=== PATIENT | female | born 1970 | race Caucasian/White ===

== ENCOUNTER 2016-12-23 18:50 | Inpatient (IN) | payer BC ==
[2016-07-31 14:19] VITALS: Ht 167.6 cm; Wt 63.5 kg
[~2016-12-23] VITALS: Ht 167.6 cm; Wt 63.5 kg
[~2016-12-23 18:50] MED LIST: ALPR1TAB2 PO; CARI250T9 PO; CITA20TA11 PO; GABA-531 PO; HYDR-3109 PO; HYDR-4100 PO; HYDR4TAB26 PO; LEVO500T20 PO; LIALDA PO; MEGE400O PO; MEGE40TA PO; METR500T PO; ONDA4TAB11 PO; ONDA4TAB5 PO; PANT20TA2 PO; PHEN16.227 PO; POTA20TA83 PO; PRED20TA PO; VANC250C11 PO
[2016-12-23] MEDS ORDERED: LORazepam 2 MG/ML VIAL IVP PRN (20:00)
[2016-12-23] MEDS ORDERED: ALBUTEROL SULFATE 0.083% 2.5 MG/3 ML VIAL.NEB INH PRN (20:00)
[2016-12-23] MEDS ORDERED: IPRATROPIUM BROM 0.5 MG/2.5 ML VIAL.NEB (ATROVENT) INH PRN (20:00)
[2016-12-23 21:15] VITALS: BP 115/53; PULSE 93; RESP 19; TEMP 97.3; O2SAT 94
[2016-12-23] MEDS ORDERED: CEFAZOLIN 1 GM IVPB PREMIX 100 ML IV ONE (21:59)
[2016-12-23] MEDS ORDERED: CLINDAMYCIN 600 mg/50mL D5W 100 ML IV ONE (22:00)
[2016-12-23] MEDS: GABAPENTIN 300 MG CAPSULE PO SCH (22:58)
[2016-12-23] MEDS: ALPRAZolam 0.25 MG TABLET PO SCH (22:58)
[2016-12-23] MEDS: LACTOBACILLUS RHAMNOSUS GG 1 CAP CAPSULE PO SCH (22:58)
[2016-12-23] MEDS: BELLADONNA ALKALOIDS/PHENOBARB 16.2 MG TABLET PO SCH (22:58)
[2016-12-23] MEDS: MEGESTROL ACETATE 400 MG/10 ML UDC PO SCH (22:58)
[2016-12-23] MEDS: HYDROmorphone 2 MG/ML VIAL IVP PRN (22:59)
[2016-12-23] MEDS: CEFAZOLIN 1 GM IVPB PREMIX 50 ML IV SCH (23:00)
[2016-12-23] MEDS: NORMAL SALINE 5 ML DISP.SYRIN IVF SCH (23:01)
[2016-12-23 23:28] LABS: BILIRUBIN,URINE 1+ (NEGATIVE); BLOOD, URINE NEGATIVE (NEGATIVE); CLARITY/URINE CLOUDY (CLEAR); COLOR,URINE YELLOW (YELLOW); GLUCOSE,URINE NEGATIVE (NEGATIVE); KETONES,URINE TRACE (NEGATIVE); LEUKOCYTE ESTERASE ,URINE NEGATIVE (NEGATIVE); NITRITE, URINE NEGATIVE (NEGATIVE); PROTEIN URINE TRACE (NEGATIVE); UROBILINOGEN,URINE 0.2 (0.2-1.0)
[2016-12-23] MEDS: IPRATROPIUM BROM 0.5 MG/2.5 ML VIAL.NEB (ATROVENT) INH SCH (23:39)
[2016-12-23] MEDS: ALBUTEROL SULFATE 0.083% 2.5 MG/3 ML VIAL.NEB INH SCH (23:39)
[2016-12-23 23:44] LABS: BASOPHILS % (AUTO) 0.7 % (0.0-2.0); EOSINOPHILS # (AUTO) 0.3 K/uL (0.0-0.4); HEMATOCRIT 39.7 % (36-48); HEMOGLOBIN 12.9 g/dL (12.0-16.0); LYMPHOCYTES # (AUTO) 1.8 K/uL (1.0-5.5); LYMPHOCYTES % (AUTO) 25.8 % (20.5-51.5); MEAN CORPUSCULAR HEMOGLOBIN 30 pg (27-31); MEAN CORPUSCULAR HGB CONC 33 % (32-36); MEAN CORPUSCULAR VOLUME 93 fL (79.0-98.0); MONOCYTES # (AUTO) 0.6 K/uL (0.0-1.0); MONOCYTES % (AUTO) 8.5 % (1.7-9.3); NEUTROPHILS # (AUTO) 4.2 K/uL (1.8-7.7); PLATELET COUNT (AUTO) 309 K/uL (130-430); RED BLOOD CELL COUNT(AUTO) 4.26 MIL/uL (4.2-6.2); RED CELL DISTRIBUTION WIDTH 15.7 % (9.0-15.0); WHITE BLOOD COUNT (AUTO) 6.9 K/uL (4.8-10.8)
[2016-12-23 23:50] LABS: BACTERIA,URINE MANY /HPF (None Seen); WBC,URINE 0-3 /HPF (0-3)
[2016-12-23 23:51] LABS: MUCUS,URINE 1+ /LPF (None Seen); URINE AMORPHOUS URATE 2+ /HPF (None Seen)
[2016-12-23 23:53] LABS: CALCIUM 9.7 mg/dL (8.4-11.0); CREATININE 0.7 mg/dL (0.55-1.30); POTASSIUM 3.2 mmol/L (3.5-5.1)
[2016-12-23 23:58] LABS: ALBUMIN 3.2 g/dL (3.4-4.8); TOTAL BILIRUBIN 0.2 mg/dL (0.0-1.0)
[2016-12-24] MEDS: CLINDAMYCIN 600 mg/50mL D5W 50 ML IV SCH ×2 (00:16→06:09)
[2016-12-24 01:46] VITALS: BP 100/56; PULSE 82; PULSE 89; RESP 16; TEMP 97.7; O2SAT 93
[2016-12-24] MEDS: IPRATROPIUM BROM 0.5 MG/2.5 ML VIAL.NEB (ATROVENT) INH SCH ×4 (03:00→15:00)
[2016-12-24] MEDS: ALBUTEROL SULFATE 0.083% 2.5 MG/3 ML VIAL.NEB INH SCH ×4 (03:00→15:00)
[2016-12-24] MEDS: HYDROmorphone 2 MG/ML VIAL IVP PRN ×5 (03:47→22:54)
[2016-12-24 04:54] VITALS: BP 90/54; PULSE 84; RESP 16; TEMP 96.3; O2SAT 93
[2016-12-24] MEDS: CEFAZOLIN 1 GM IVPB PREMIX 50 ML IV SCH (05:30)
[2016-12-24] MEDS: NORMAL SALINE 5 ML DISP.SYRIN IVF SCH ×3 (06:09→22:55)
[2016-12-24 07:59] LABS: ALBUMIN 3.3 g/dL (3.4-4.8); CALCIUM 9.7 mg/dL (8.4-11.0); CREATININE 0.64 mg/dL (0.55-1.30); POTASSIUM 3.4 mmol/L (3.5-5.1); TOTAL BILIRUBIN 0.2 mg/dL (0.0-1.0); TOTAL PROTEIN, SERUM 6.5 g/dL (6.4-8.3)
[2016-12-24 08:00] LABS: BASOPHILS % (AUTO) 0.6 % (0.0-2.0); EOSINOPHILS # (AUTO) 0.4 K/uL (0.0-0.4); EOSINOPHILS % (AUTO) 6.6 % (0.0-4.0); HEMATOCRIT 39.7 % (36-48); HEMOGLOBIN 13.1 g/dL (12.0-16.0); LYMPHOCYTES # (AUTO) 1.6 K/uL (1.0-5.5); LYMPHOCYTES % (AUTO) 27.3 % (20.5-51.5); MEAN CORPUSCULAR HEMOGLOBIN 31 pg (27-31); MEAN CORPUSCULAR HGB CONC 33 % (32-36); MEAN CORPUSCULAR VOLUME 93 fL (79.0-98.0); MONOCYTES # (AUTO) 0.6 K/uL (0.0-1.0); MONOCYTES % (AUTO) 11.2 % (1.7-9.3); NEUTROPHILS # (AUTO) 3.1 K/uL (1.8-7.7); NEUTROPHILS % (AUTO) 54.3 % (40.0-70.0); PLATELET COUNT (AUTO) 283 K/uL (130-430); RED BLOOD CELL COUNT(AUTO) 4.28 MIL/uL (4.2-6.2); RED CELL DISTRIBUTION WIDTH 15.8 % (9.0-15.0); WHITE BLOOD COUNT (AUTO) 5.8 K/uL (4.8-10.8)
[2016-12-24] MEDS: MEGESTROL ACETATE 400 MG/10 ML UDC PO SCH ×2 (08:51→22:47)
[2016-12-24] MEDS: LACTOBACILLUS RHAMNOSUS GG 1 CAP CAPSULE PO SCH ×2 (08:52→22:47)
[2016-12-24] MEDS: GABAPENTIN 300 MG CAPSULE PO SCH ×3 (08:52→22:47)
[2016-12-24] MEDS: BELLADONNA ALKALOIDS/PHENOBARB 16.2 MG TABLET PO SCH ×4 (08:52→22:47)
[2016-12-24] MEDS: ALPRAZolam 0.25 MG TABLET PO SCH ×3 (08:52→21:00)
[2016-12-24] MEDS ORDERED: POTASSIUM CHLORIDE 20 MEQ TAB.PRT.SR PO ONE (10:45)
[2016-12-24 12:16] VITALS: BP 103/61; PULSE 73; RESP 16; TEMP 98.6; O2SAT 95
[2016-12-24] MEDS: ONDANSETRON HCL 4 MG/2 ML VIAL IVP PRN (12:33)
[2016-12-24] MEDS: AMPICILLIN SODIUM 2 GM in NS 100 ML IV SCH ×2 (12:33→18:25)
[2016-12-24 12:48] VITALS: BP 102/69; PULSE 91; RESP 16; TEMP 97.6; O2SAT 93
[2016-12-24 16:47] VITALS: BP 94/55; PULSE 96; RESP 17; TEMP 98.3; O2SAT 92
[2016-12-24 20:00] VITALS: BP_SYST 104; BP_SYST 107; BP_DIAS 56; BP_DIAS 62; PULSE 100; PULSE 95; RESP 18; TEMP 98; TEMP 98.3; O2SAT 90; O2SAT 97
[2016-12-25] VITALS (7 sets, daily range): BP systolic 98–117; BP diastolic 51–76; PULSE 75–95; RESP 16–21; TEMP 96.4–98.6; O2SAT 90–98
[2016-12-25] MEDS: IPRATROPIUM BROM 0.5 MG/2.5 ML VIAL.NEB (ATROVENT) INH SCH ×6 (03:00→23:00)
[2016-12-25] MEDS: ALBUTEROL SULFATE 0.083% 2.5 MG/3 ML VIAL.NEB INH SCH ×6 (03:00→23:00)
[2016-12-25] MEDS: HYDROmorphone 2 MG/ML VIAL IVP PRN ×4 (04:39→20:16)
[2016-12-25] MEDS: AMPICILLIN SODIUM 2 GM in NS 100 ML IV SCH ×6 (06:26→23:08)
[2016-12-25] MEDS: NORMAL SALINE 5 ML DISP.SYRIN IVF SCH ×3 (06:26→21:17)
[2016-12-25 07:27] LABS: BASOPHILS % (AUTO) 0.7 % (0.0-2.0); EOSINOPHILS # (AUTO) 0.2 K/uL (0.0-0.4); EOSINOPHILS % (AUTO) 2.4 % (0.0-4.0); HEMATOCRIT 37.6 % (36-48); HEMOGLOBIN 12.4 g/dL (12.0-16.0); LYMPHOCYTES # (AUTO) 1.5 K/uL (1.0-5.5); LYMPHOCYTES % (AUTO) 21.4 % (20.5-51.5); MEAN CORPUSCULAR HEMOGLOBIN 31 pg (27-31); MEAN CORPUSCULAR HGB CONC 33 % (32-36); MEAN CORPUSCULAR VOLUME 93 fL (79.0-98.0); MONOCYTES # (AUTO) 0.6 K/uL (0.0-1.0); NEUTROPHILS # (AUTO) 4.7 K/uL (1.8-7.7); NEUTROPHILS % (AUTO) 66.5 % (40.0-70.0); PLATELET COUNT (AUTO) 318 K/uL (130-430); RED BLOOD CELL COUNT(AUTO) 4.03 MIL/uL (4.2-6.2); RED CELL DISTRIBUTION WIDTH 15.6 % (9.0-15.0)
[2016-12-25] MEDS: ALPRAZolam 0.25 MG TABLET PO SCH ×3 (10:42→21:18)
[2016-12-25] MEDS: GABAPENTIN 300 MG CAPSULE PO SCH ×3 (10:42→21:17)
[2016-12-25] MEDS: BELLADONNA ALKALOIDS/PHENOBARB 16.2 MG TABLET PO SCH ×4 (10:42→21:17)
[2016-12-25] MEDS: MEGESTROL ACETATE 400 MG/10 ML UDC PO SCH ×2 (10:42→21:17)
[2016-12-25] MEDS: LACTOBACILLUS RHAMNOSUS GG 1 CAP CAPSULE PO SCH ×2 (10:42→21:17)
[2016-12-25] MEDS: CARISOPRODOL 350 MG TABLET PO SCH ×2 (15:03→21:17)
[2016-12-26] VITALS (7 sets, daily range): BP systolic 96–119; BP diastolic 53–76; PULSE 70–87; RESP 17–18; TEMP 96.8–99.4; O2SAT 90–97
[2016-12-26] MEDS: HYDROmorphone 2 MG/ML VIAL IVP PRN ×5 (00:28→19:34)
[2016-12-26] MEDS: IPRATROPIUM BROM 0.5 MG/2.5 ML VIAL.NEB (ATROVENT) INH SCH ×6 (02:41→23:00)
[2016-12-26] MEDS: ALBUTEROL SULFATE 0.083% 2.5 MG/3 ML VIAL.NEB INH SCH ×6 (02:41→23:00)
[2016-12-26] MEDS: AMPICILLIN SODIUM 2 GM in NS 100 ML IV SCH ×4 (05:01→23:09)
[2016-12-26] MEDS: NORMAL SALINE 5 ML DISP.SYRIN IVF SCH ×3 (05:05→21:15)
[2016-12-26] MEDS: LACTOBACILLUS RHAMNOSUS GG 1 CAP CAPSULE PO SCH ×2 (09:07→21:12)
[2016-12-26] MEDS: CARISOPRODOL 350 MG TABLET PO SCH ×3 (09:07→21:12)
[2016-12-26] MEDS: GABAPENTIN 300 MG CAPSULE PO SCH ×3 (09:07→21:11)
[2016-12-26] MEDS: MEGESTROL ACETATE 400 MG/10 ML UDC PO SCH ×2 (09:07→21:11)
[2016-12-26] MEDS: BELLADONNA ALKALOIDS/PHENOBARB 16.2 MG TABLET PO SCH ×4 (09:07→21:12)
[2016-12-26] MEDS: ALPRAZolam 0.25 MG TABLET PO SCH ×3 (09:08→21:15)
[2016-12-26] MEDS: ONDANSETRON HCL 4 MG/2 ML VIAL IVP PRN (15:11)
[2016-12-26] MEDS: METHADONE HCL 10 MG TABLET PO PRN (18:52)
[2016-12-27] MEDS: HYDROmorphone 2 MG/ML VIAL IVP PRN ×7 (00:19→21:08)
[2016-12-27 00:20] VITALS: BP 108/70; PULSE 90; RESP 20; TEMP 97; O2SAT 95
[2016-12-27] MEDS: IPRATROPIUM BROM 0.5 MG/2.5 ML VIAL.NEB (ATROVENT) INH SCH ×6 (03:00→23:00)
[2016-12-27] MEDS: ALBUTEROL SULFATE 0.083% 2.5 MG/3 ML VIAL.NEB INH SCH ×6 (03:00→23:00)
[2016-12-27 04:22] VITALS: BP 103/67; PULSE 67; RESP 18; TEMP 98.8; O2SAT 92
[2016-12-27] MEDS: METHADONE HCL 10 MG TABLET PO PRN (05:26)
[2016-12-27] MEDS: NORMAL SALINE 5 ML DISP.SYRIN IVF SCH ×3 (05:26→22:04)
[2016-12-27] MEDS: AMPICILLIN SODIUM 2 GM in NS 100 ML IV SCH ×3 (05:26→18:00)
[2016-12-27 07:44] LABS: BASOPHILS # (AUTO) 0.1 K/uL (0.0-0.2); BASOPHILS % (AUTO) 0.9 % (0.0-2.0); EOSINOPHILS # (AUTO) 0.2 K/uL (0.0-0.4); EOSINOPHILS % (AUTO) 2.6 % (0.0-4.0); HEMATOCRIT 38.9 % (36-48); HEMOGLOBIN 12.6 g/dL (12.0-16.0); LYMPHOCYTES # (AUTO) 2.2 K/uL (1.0-5.5); LYMPHOCYTES % (AUTO) 26.2 % (20.5-51.5); MEAN CORPUSCULAR HEMOGLOBIN 31 pg (27-31); MEAN CORPUSCULAR HGB CONC 32 % (32-36); MEAN CORPUSCULAR VOLUME 95 fL (79.0-98.0); MONOCYTES # (AUTO) 0.8 K/uL (0.0-1.0); MONOCYTES % (AUTO) 9.2 % (1.7-9.3); NEUTROPHILS # (AUTO) 5.1 K/uL (1.8-7.7); NEUTROPHILS % (AUTO) 61.1 % (40.0-70.0); PLATELET COUNT (AUTO) 294 K/uL (130-430); RED BLOOD CELL COUNT(AUTO) 4.08 MIL/uL (4.2-6.2); RED CELL DISTRIBUTION WIDTH 16.1 % (9.0-15.0); WHITE BLOOD COUNT (AUTO) 8.4 K/uL (4.8-10.8)
[2016-12-27 08:00] VITALS: BP 116/67; PULSE 72; RESP 18; TEMP 97; O2SAT 98
[2016-12-27] MEDS: ALPRAZolam 0.25 MG TABLET PO SCH ×3 (08:50→21:57)
[2016-12-27] MEDS: CARISOPRODOL 350 MG TABLET PO SCH ×3 (08:50→21:56)
[2016-12-27] MEDS: GABAPENTIN 300 MG CAPSULE PO SCH ×3 (08:50→21:56)
[2016-12-27] MEDS: MEGESTROL ACETATE 400 MG/10 ML UDC PO SCH ×2 (08:50→21:56)
[2016-12-27] MEDS: LACTOBACILLUS RHAMNOSUS GG 1 CAP CAPSULE PO SCH ×2 (08:50→21:59)
[2016-12-27] MEDS: BELLADONNA ALKALOIDS/PHENOBARB 16.2 MG TABLET PO SCH ×4 (08:50→21:56)
[2016-12-27 12:37] VITALS: BP 110/71; PULSE 79; RESP 17; TEMP 97.5; O2SAT 92
[2016-12-27] MEDS: ONDANSETRON HCL 4 MG/2 ML VIAL IVP PRN (13:48)
[2016-12-27 17:43] VITALS: BP 95/55; PULSE 77; RESP 16; TEMP 96.6; O2SAT 94
[2016-12-27 20:10] VITALS: BP 125/78; PULSE 66; RESP 17; TEMP 98.2; O2SAT 98
[2016-12-28] VITALS (7 sets, daily range): BP systolic 92–106; BP diastolic 46–70; PULSE 60–100; RESP 16–18; TEMP 97.2–98.6; O2SAT 92–97
[2016-12-28] MEDS: AMPICILLIN SODIUM 2 GM in NS 100 ML IV SCH ×4 (00:11→17:35)
[2016-12-28] MEDS: HYDROmorphone 2 MG/ML VIAL IVP PRN ×6 (01:16→23:20)
[2016-12-28] MEDS: IPRATROPIUM BROM 0.5 MG/2.5 ML VIAL.NEB (ATROVENT) INH SCH ×6 (03:00→23:00)
[2016-12-28] MEDS: ALBUTEROL SULFATE 0.083% 2.5 MG/3 ML VIAL.NEB INH SCH ×6 (03:00→23:00)
[2016-12-28] MEDS: ONDANSETRON HCL 4 MG/2 ML VIAL IVP PRN ×3 (05:38→21:56)
[2016-12-28] MEDS: NORMAL SALINE 5 ML DISP.SYRIN IVF SCH ×3 (07:03→21:59)
[2016-12-28 07:20] LABS: CALCIUM 9.3 mg/dL (8.4-11.0); CREATININE 0.57 mg/dL (0.55-1.30)
[2016-12-28 07:37] LABS: BASOPHILS % (AUTO) 0.2 % (0.0-2.0); EOSINOPHILS # (AUTO) 0.1 K/uL (0.0-0.4); EOSINOPHILS % (AUTO) 0.9 % (0.0-4.0); HEMATOCRIT 36.6 % (36-48); HEMOGLOBIN 12.4 g/dL (12.0-16.0); LYMPHOCYTES # (AUTO) 2.1 K/uL (1.0-5.5); LYMPHOCYTES % (AUTO) 21.4 % (20.5-51.5); MEAN CORPUSCULAR HEMOGLOBIN 31 pg (27-31); MEAN CORPUSCULAR HGB CONC 34 % (32-36); MEAN CORPUSCULAR VOLUME 92 fL (79.0-98.0); MONOCYTES # (AUTO) 0.6 K/uL (0.0-1.0); MONOCYTES % (AUTO) 6.5 % (1.7-9.3); NEUTROPHILS # (AUTO) 6.8 K/uL (1.8-7.7); PLATELET COUNT (AUTO) 290 K/uL (130-430); RED BLOOD CELL COUNT(AUTO) 3.98 MIL/uL (4.2-6.2); RED CELL DISTRIBUTION WIDTH 15.4 % (9.0-15.0); WHITE BLOOD COUNT (AUTO) 9.6 K/uL (4.8-10.8)
[2016-12-28] MEDS: MEGESTROL ACETATE 400 MG/10 ML UDC PO SCH ×2 (09:26→21:58)
[2016-12-28] MEDS: ALPRAZolam 0.25 MG TABLET PO SCH ×3 (09:26→21:58)
[2016-12-28] MEDS: BELLADONNA ALKALOIDS/PHENOBARB 16.2 MG TABLET PO SCH ×4 (09:26→21:58)
[2016-12-28] MEDS: GABAPENTIN 300 MG CAPSULE PO SCH ×3 (09:26→21:57)
[2016-12-28] MEDS: LACTOBACILLUS RHAMNOSUS GG 1 CAP CAPSULE PO SCH ×2 (09:26→21:56)
[2016-12-28] MEDS: CARISOPRODOL 350 MG TABLET PO SCH ×3 (09:27→21:57)
[2016-12-28] MEDS: METHADONE HCL 10 MG TABLET PO SCH (21:57)
[2016-12-29] MEDS: AMPICILLIN SODIUM 2 GM in NS 100 ML IV SCH ×4 (00:40→17:53)
[2016-12-29] MEDS: HYDROmorphone 2 MG/ML VIAL IVP PRN ×7 (02:34→22:26)
[2016-12-29] MEDS: ALBUTEROL SULFATE 0.083% 2.5 MG/3 ML VIAL.NEB INH SCH ×6 (02:37→23:00)
[2016-12-29] MEDS: IPRATROPIUM BROM 0.5 MG/2.5 ML VIAL.NEB (ATROVENT) INH SCH ×6 (02:38→23:00)
[2016-12-29 04:21] VITALS: BP 93/54; PULSE 64; RESP 18; TEMP 97.9; O2SAT 90
[2016-12-29] MEDS: NORMAL SALINE 5 ML DISP.SYRIN IVF SCH ×3 (06:09→21:49)
[2016-12-29 08:29] VITALS: BP 90/52; PULSE 67; RESP 12; TEMP 97.7
[2016-12-29] MEDS: BELLADONNA ALKALOIDS/PHENOBARB 16.2 MG TABLET PO SCH ×4 (09:00→21:47)
[2016-12-29] MEDS: CARISOPRODOL 350 MG TABLET PO SCH ×3 (09:33→21:48)
[2016-12-29] MEDS: LACTOBACILLUS RHAMNOSUS GG 1 CAP CAPSULE PO SCH ×2 (09:33→21:48)
[2016-12-29] MEDS: METHADONE HCL 10 MG TABLET PO SCH ×2 (09:33→21:47)
[2016-12-29] MEDS: MEGESTROL ACETATE 400 MG/10 ML UDC PO SCH ×2 (09:34→21:48)
[2016-12-29] MEDS: ALPRAZolam 0.25 MG TABLET PO SCH ×3 (09:34→21:48)
[2016-12-29] MEDS: GABAPENTIN 300 MG CAPSULE PO SCH ×3 (09:34→21:48)
[2016-12-29 12:27] VITALS: BP 104/57; PULSE 73; RESP 18; TEMP 96.6; O2SAT 92
[2016-12-29 16:25] VITALS: BP 100/58; PULSE 70; RESP 16; TEMP 96.4; O2SAT 92
[2016-12-29] MEDS: ONDANSETRON HCL 4 MG/2 ML VIAL IVP PRN ×2 (18:00→22:23)
[2016-12-29 20:00] VITALS: BP 109/76; PULSE 99; RESP 18; TEMP 97.9; O2SAT 98
[2016-12-29 23:36] VITALS: BP 107/66; PULSE 66; RESP 16; TEMP 98.4; O2SAT 97
[2016-12-30] MEDS: AMPICILLIN SODIUM 2 GM in NS 100 ML IV SCH ×5 (00:19→23:41)
[2016-12-30] MEDS: HYDROmorphone 2 MG/ML VIAL IVP PRN ×7 (01:53→23:46)
[2016-12-30] MEDS: ONDANSETRON HCL 4 MG/2 ML VIAL IVP PRN ×2 (02:26→23:41)
[2016-12-30] MEDS: ALBUTEROL SULFATE 0.083% 2.5 MG/3 ML VIAL.NEB INH SCH ×6 (03:00→23:00)
[2016-12-30] MEDS: IPRATROPIUM BROM 0.5 MG/2.5 ML VIAL.NEB (ATROVENT) INH SCH ×6 (03:00→23:00)
[2016-12-30 03:18] VITALS: BP 94/41; PULSE 70; RESP 16; TEMP 98.2; O2SAT 92
[2016-12-30] MEDS: NORMAL SALINE 5 ML DISP.SYRIN IVF SCH ×3 (05:37→21:31)
[2016-12-30] MEDS: CARISOPRODOL 350 MG TABLET PO SCH ×3 (08:47→21:31)
[2016-12-30] MEDS: METHADONE HCL 10 MG TABLET PO SCH ×2 (08:47→21:30)
[2016-12-30] MEDS: ALPRAZolam 0.25 MG TABLET PO SCH ×3 (08:47→21:31)
[2016-12-30] MEDS: GABAPENTIN 300 MG CAPSULE PO SCH ×3 (08:47→21:30)
[2016-12-30] MEDS: BELLADONNA ALKALOIDS/PHENOBARB 16.2 MG TABLET PO SCH ×4 (08:47→21:32)
[2016-12-30] MEDS: MEGESTROL ACETATE 400 MG/10 ML UDC PO SCH ×2 (08:47→21:30)
[2016-12-30] MEDS: LACTOBACILLUS RHAMNOSUS GG 1 CAP CAPSULE PO SCH ×2 (08:47→21:30)
[2016-12-30 08:54] VITALS: BP 100/60; PULSE 61; RESP 18; TEMP 97.4; O2SAT 92
[2016-12-30 11:20] LABS: BODY FLUID CRYSTALS NO CRYSTALS SEEN (None Seen)
[2016-12-30 12:45] VITALS: BP 101/54; PULSE 64; RESP 16; TEMP 97.2; O2SAT 94
[2016-12-30 16:21] VITALS: BP 107/70; PULSE 72; RESP 17; TEMP 97.3; O2SAT 99
[2016-12-30 20:00] VITALS: BP 124/58; PULSE 71; RESP 18; TEMP 97.8; O2SAT 97
[2016-12-31] VITALS: BP 127/62; PULSE 76; RESP 18; TEMP 97.1; O2SAT 96
[2016-12-31] MEDS: IPRATROPIUM BROM 0.5 MG/2.5 ML VIAL.NEB (ATROVENT) INH SCH ×4 (03:00→15:00)
[2016-12-31] MEDS: ALBUTEROL SULFATE 0.083% 2.5 MG/3 ML VIAL.NEB INH SCH ×4 (03:00→15:00)
[2016-12-31] MEDS: HYDROmorphone 2 MG/ML VIAL IVP PRN ×4 (03:55→15:13)
[2016-12-31 04:16] VITALS: BP 119/64; PULSE 70; RESP 17; TEMP 97.6; O2SAT 95
[2016-12-31] MEDS: AMPICILLIN SODIUM 2 GM in NS 100 ML IV SCH ×2 (05:21→12:34)
[2016-12-31] MEDS: NORMAL SALINE 5 ML DISP.SYRIN IVF SCH ×2 (05:21→14:45)
[2016-12-31 08:47] VITALS: BP 105/72; PULSE 65; RESP 20; TEMP 97.4; O2SAT 93
[2016-12-31] MEDS: GABAPENTIN 300 MG CAPSULE PO SCH ×2 (08:48→15:13)
[2016-12-31] MEDS: MEGESTROL ACETATE 400 MG/10 ML UDC PO SCH (08:48)
[2016-12-31] MEDS: METHADONE HCL 10 MG TABLET PO SCH (08:49)
[2016-12-31] MEDS: CARISOPRODOL 350 MG TABLET PO SCH ×2 (08:49→15:13)
[2016-12-31] MEDS: ALPRAZolam 0.25 MG TABLET PO SCH ×2 (08:49→15:13)
[2016-12-31] MEDS: LACTOBACILLUS RHAMNOSUS GG 1 CAP CAPSULE PO SCH (08:49)
[2016-12-31] MEDS: BELLADONNA ALKALOIDS/PHENOBARB 16.2 MG TABLET PO SCH ×2 (08:51→12:34)
[2016-12-31 11:00] LABS: WBC, BODY FLUID 8 /uL
[2016-12-31] MEDS: ONDANSETRON HCL 4 MG/2 ML VIAL IVP PRN (11:10)
[2016-12-31 12:00] VITALS: BP 107/67; PULSE 60; RESP 18; TEMP 98.5; O2SAT 96
[2016-12-31 14:00] VITALS: BP 107/67; PULSE 60; RESP 18; TEMP 98.5; O2SAT 96
== END 2016-12-31 16:45 | DRG 565 ==
LOC: SMU 20:50
PROVIDERS: ADMIT Internal Medicine; ATTEND Internal Medicine
PROC: 0S9C3ZZ Drainage of Right Knee Joint, Percutaneous Approach (ICD-10-PCS; principal; 2016-12-30)
PROC: 02HV33Z Insertion of Infusion Device into Superior Vena Cava, Percutaneous Approach (ICD-10-PCS; 2016-12-30)
PROC: B548ZZA Ultrasonography of Superior Vena Cava, Guidance (ICD-10-PCS; 2016-12-30)
DX: M25.461 Effusion, right knee (principal); L03.116 Cellulitis of left lower limb; L03.115 Cellulitis of right lower limb; M17.11 Unilateral primary osteoarthritis, right knee; G89.4 Chronic pain syndrome; J44.9 Chronic obstructive pulmonary disease, unspecified; Z86.19 Personal history of other infectious and parasitic diseases; Z87.891 Personal history of nicotine dependence; Z99.3 Dependence on wheelchair; K58.9 Irritable bowel syndrome, unspecified; M24.451 Recurrent dislocation, right hip; Z96.643 Presence of artificial hip joint, bilateral; Z88.6 Allergy status to analgesic agent; Z88.8 Allergy status to other drugs, medicaments and biological substances; Z80.8 Family history of malignant neoplasm of other organs or systems
CPT/HCPCS: 36415; 71010; 80048; 80053; 81000-TC; 83735-TC; 85025; 85651-TC; 86060; 87040-TC; 87070-TC; 87086; 87205-TC; 89051-TC; 89060-TC; 93970; 94640; 94760; C1751; J0290; J0690; J1170; J2405; J3490; J7050; J7060

== ENCOUNTER 2018-05-19 21:01 | Inpatient (IN) | payer BC ==
[~2018-05-19] VITALS: Ht 167.6 cm; Wt 62.6 kg
[~2018-05-19 21:01] MED LIST changes: +BUPIVACAINE /EPINEPHRINE/PF 0.5% 30 ML VIAL INJ ONE; -CARI250T9 PO; -CITA20TA11 PO; +DEXAMETHASONE SOD PHOSPHATE 4 MG/ML VIAL IVP ONE; -HYDR-3109 PO; -HYDR-4100 PO; -LEVO500T20 PO; +LIDOCAINE 1% 10 MG/ML, 20 ML MDV INJ ONE; +LR 1,000 ML IV.SOLN IV ONE; -MEGE400O PO; -METR500T PO; +MIDAZOLAM HCL 5 MG/5 ML VIAL IVP ONE; -ONDA4TAB11 PO; +ONDANSETRON HCL 4 MG/2 ML VIAL IVP ONE; -PANT20TA2 PO; -PHEN16.227 PO; -POTA20TA83 PO; -PRED20TA PO; +ROCURONIUM BROMIDE 10 MG/ML (ZEMURON) IV ONE; +SEVOFLURANE 15 MIN GAS INH ONE; +SODIUM BICARBONATE 4% (NEUT) 5 ML VIAL INJ ONE; +SUCCINYLCHOLINE CHLORIDE 20 MG/ML(QUELICIN) IVP ONE; -VANC250C11 PO; +fentaNYL CITRATE 250 MCG/5 ML AMP IV ONE
--- NOTE | 2018-05-19 21:05 | NUR ---
Patient to ER bed 01 to gown for evaluation. Side rails up.
--- NOTE | 2018-05-19 21:06 | NUR ---
Patient brought in via wheelchair by son after finding patient on floor. Patient noted lethargic on arrival. Patient has hx of substance abuse and multiple knee and hip surgeries. Son states possible overdose. Patient takes methadone, xanax, diuladid, soma, gabapentin. -SI.
[2018-05-19 21:08] VITALS: BP_SYST 150
--- NOTE | 2018-05-19 21:14 | NUR ---
LA NENA Charles at bedside for medical evaluation.
[2018-05-19] MEDS ORDERED: NACL 0.9% 1,000 ML IV ONE (21:23)
[2018-05-19] MEDS ORDERED: MET10 PO (21:24)
[2018-05-19] MEDS ORDERED: ZOLP10TA2 PO (21:24)
--- NOTE | 2018-05-19 21:25 | NUR ---
Medication reconciliation completed with information provided by patient . Any prior medication reconciliation on file was reviewed and corrected.
[2018-05-19] MEDS ORDERED: NALOXONE HCL 2 MG/2 ML SYR IVP ONE ×2 (21:30)
--- NOTE | 2018-05-19 21:30 | NUR ---
Called Poison Control at [phone] and spoke with Thien. Per recommendations: tylenol levels, salicytates, cbc, and cmp. Moitor for mental status and airway. Narcan PRN for resp depression. Monitor for QTC prolongination and give 2 gm magnesium for it if greater 500 ms. Monitor LFT and give mucomyst if needed. Admit for [address] Charles notified. Will continue to monitor patient.
--- NOTE | 2018-05-19 21:55 | NUR ---
# 22 gauge angiocath placed to LAC. Use of asceptic technique. Opsite placed over site. Blood return noted. Blood for lab drawn from site. Flushed with 10 cc of normal saline. No evidence of infiltration noted. Patient tolerated well.
[2018-05-19 22:07] LABS: BASOPHILS # (AUTO) 0.2 K/uL (0.0-0.2); BASOPHILS % (AUTO) 1.3 % (0.0-2.0); EOSINOPHILS # (AUTO) 0.2 K/uL (0.0-0.4); EOSINOPHILS % (AUTO) 1.2 % (0.0-4.0); HEMOGLOBIN 12.8 g/dL (12.0-16.0); LYMPHOCYTES # (AUTO) 2.4 K/uL (1.0-5.5); LYMPHOCYTES % (AUTO) 18.9 % (20.5-51.5); MEAN CORPUSCULAR HEMOGLOBIN 31 pg (27-31); MEAN CORPUSCULAR HGB CONC 32 % (32-36); MEAN CORPUSCULAR VOLUME 96 fL (79.0-98.0); MONOCYTES # (AUTO) 0.8 K/uL (0.0-1.0); MONOCYTES % (AUTO) 6.5 % (1.7-9.3); NEUTROPHILS # (AUTO) 8.9 K/uL (1.8-7.7); NEUTROPHILS % (AUTO) 72.1 % (40.0-70.0); PLATELET COUNT (AUTO) 501 K/uL (130-430); RED BLOOD CELL COUNT(AUTO) 4.16 MIL/uL (4.2-6.2); RED CELL DISTRIBUTION WIDTH 16.7 % (9.0-15.0); WHITE BLOOD COUNT (AUTO) 12.5 K/uL (4.8-10.8)
[2018-05-19] MEDS ORDERED: SOM350 PO (22:13)
[2018-05-19 22:22] LABS: ANION GAP 6 (5-15); CALCIUM 9.3 mg/dL (8.4-11.0); CHLORIDE 103 mmol/L (98-107); CREATININE 0.87 mg/dL (0.55-1.30); GLUCOSE 91 mg/dL (70-99); POTASSIUM 3.9 mmol/L (3.5-5.1); SODIUM SERUM 139 mmol/L (136-145); UREA NITROGEN, BLOOD 13 mg/dL (8-21)
[2018-05-19 22:27] LABS: ALANINE AMINOTRANSFERASE 18 U/L (12-78); ALBUMIN 3.7 g/dL (3.4-4.8); ASPARTATE AMINOTRANSFERASE 18 U/L (10-37); TOTAL BILIRUBIN 0.2 mg/dL (0.0-1.0)
[2018-05-19 22:28] LABS: GFR AFRICAN AMERICAN 89 mL/min (>90)
[2018-05-19 22:29] LABS: ACETAMINOPHEN < 1 ug/mL (1-30); ALCOHOL, BLOOD < 3 mg/dL (<10)
--- NOTE | 2018-05-19 22:30 | NUR ---
IVF infusing with no s/s of infiltration at this time. Will cont to monitor.
[2018-05-19 22:38] LABS: BILIRUBIN,URINE NEGATIVE (NEGATIVE); BLOOD, URINE NEGATIVE (NEGATIVE); CLARITY/URINE CLEAR (CLEAR); COLOR,URINE YELLOW (YELLOW); GLUCOSE,URINE NEGATIVE (NEGATIVE); KETONES,URINE NEGATIVE (NEGATIVE); LEUKOCYTE ESTERASE ,URINE NEGATIVE (NEGATIVE); NITRITE, URINE NEGATIVE (NEGATIVE); PROTEIN URINE NEGATIVE (NEGATIVE); UROBILINOGEN,URINE 0.2 (0.2-1.0)
[2018-05-19 22:43] LABS: INR 0.9 (0.8-1.2); PROTHROMBIN TIME 9.2 SECS (9.5-12.5)
[2018-05-19 23:00] LABS: BENZODIAZEPINE, URINE POSITIVE (NEG <=150); URINE METHADONE POSITIVE (NEG <=200); URINE OXYCODONE SCREEN POSITIVE (NEG <=100)
[2018-05-19 23:01] LABS: BARBITURATE, URINE NEGATIVE (NEG <=200); CANNABINOID, URINE NEGATIVE (NEG <=50); COCAINE, URINE NEGATIVE (NEG <=150); METHAMPHETAMINES SCREEN,URINE NEGATIVE (NEG <=500); OPIATE, URINE NEGATIVE (NEG <=100); PHENCYCLIDINE SCREEN,URINE NEGATIVE (NEG <=25); UR TRICYCLIC ANTIDEPRESSANTS NEGATIVE (NEG <=300); URINE AMPHETAMINE NEGATIVE (NEG <=500); URINE PROPOXYPHENE SCREEN NEGATIVE (NEG <=300)
[2018-05-20] MEDS ORDERED: MORPHINE 2 MG/ML INJ. SYRINGE IVP PRN
--- NOTE | 2018-05-20 | NUR ---
End of life care decisions discussed with patient by Dr. Charles. Opportunity for questions and concerns addressed. Patient's code status is FULL CODE, paperwork completed and placed in chart.
--- NOTE | 2018-05-20 00:03 | NUR ---
Patient will be admitted to care of Dr. Crow. Admitted to Telemetry unit. Will go to room 132A. Belongings list completed. Summary report printed. Report will be given at bedside.
--- NOTE | 2018-05-20 00:21 | NUR ---
ADMISSION NOTE Received patient from ER via yunior, received report from GIOVANI Hodge. Patient admitted with diagnosis of ALOC. Patient oriented to hospital routine, call light, toileting and safety-patient verbalized understanding.
[2018-05-20 00:24] VITALS: BP_SYST 132
--- NOTE | 2018-05-20 01:00 | NUR ---
Assessment Pt wakes up at intervals, answers questions appropriately and then goes back to sleep. Pt was instructed on nothing by mouth and pt wanted to know why. Pt was informed it was due to her being too drowsy and this is to prevent aspiration. Pt then verbalized understanding. Pt also stated that her son who brought her into ER "over exaggerates." Right knee incision noted with shawn in place. Pt stated she had Right Total Knee Replacement 3 weeks ago at [facility]. Right knee also noted with 3+ edema. Small abrasion noted on left knee. Photos of both knees have been taken. Pt stated she is unable to walk and has been using a wheelchair. Pt will be repositioned and turned with pillow support q 2hrs. IVF is infusing well in LAC without any signs of infiltration. Fall and safety precautions are in place. Call light is with pt and bed alarm is on. Pt was instructed to call for assistance before getting out of bed and pt verbalized understanding. Bed is in the lowest and locked positions. Will continue to monitor pt.
[2018-05-20] MEDS: D5NS 1,000 ML IV SCH ×2 (02:10→23:14)
--- NOTE | 2018-05-20 03:00 | NUR ---
Rounds Pt is sleeping without any respiratory distress noted. IVF is infusing well in LAC. Fall and safety precautions are in place.
--- NOTE | 2018-05-20 04:48 | NUR ---
Rounds Pt is sleeping without any distress noted. IVF is infusing well in [facility]. Fall and safety precautions are in place. Call light is with pt and bed alarm is on. Will continue to monitor pt.
--- NOTE | 2018-05-20 05:59 | NUR ---
CONSULTATION CALLED REASON FOR CONSULTATION: R KNEE PAIN WAS CONSULT CALLED? Y PERSON WHO WAS NOTIFIED: LETA CONSULTING PHYSICIAN: HOLLY MACHUCA PRECIPITATOR SPECIALTY: ORTHOPAEDIC MAITRE D' PHONE NUMBER: [phone] ORDERING PHYSICIAN: DR. CAMACHO [facility]
[2018-05-20] MEDS ORDERED: POTASSIUM CHLORIDE 20 MEQ TAB.PRT.SR PO PRN (06:00)
[2018-05-20] MEDS ORDERED: DOCUSATE SODIUM 100 MG CAPSULE PO PRN (06:00)
[2018-05-20] MEDS ORDERED: MAGNESIUM SULFATE 50 ML IV PRN (06:00)
[2018-05-20] MEDS ORDERED: LORazepam 2 MG/ML VIAL IVP PRN (06:00)
[2018-05-20] MEDS ORDERED: ONDANSETRON HCL 4 MG/2 ML VIAL IVP PRN (06:00)
[2018-05-20] MEDS ORDERED: MUPIROCIN 2% TOPICAL OINTMENT 22 GM NS PRN (06:00)
[2018-05-20] MEDS ORDERED: ACETAMINOPHEN 325 MG TABLET PO PRN (06:00)
--- NOTE | 2018-05-20 06:15 | NUR ---
Staple Removal [place] removed from right knee incision as ordered by MD. Incision is dry and intact. No drainage noted. Pt is fully awake, alert and oriented x4. Call light is with pt and bed alarm is on.
[2018-05-20 06:35] LABS: BASOPHILS % (AUTO) 0.4 % (0.0-2.0); EOSINOPHILS # (AUTO) 0.1 K/uL (0.0-0.4); EOSINOPHILS % (AUTO) 1.1 % (0.0-4.0); HEMATOCRIT 33.7 % (36-48); HEMOGLOBIN 11.5 g/dL (12.0-16.0); LYMPHOCYTES # (AUTO) 2.7 K/uL (1.0-5.5); LYMPHOCYTES % (AUTO) 22.8 % (20.5-51.5); MEAN CORPUSCULAR HEMOGLOBIN 33 pg (27-31); MEAN CORPUSCULAR HGB CONC 34 % (32-36); MEAN CORPUSCULAR VOLUME 96 fL (79.0-98.0); MONOCYTES % (AUTO) 8.5 % (1.7-9.3); NEUTROPHILS # (AUTO) 7.8 K/uL (1.8-7.7); NEUTROPHILS % (AUTO) 67.2 % (40.0-70.0); PLATELET COUNT (AUTO) 404 K/uL (130-430); RED BLOOD CELL COUNT(AUTO) 3.52 MIL/uL (4.2-6.2); RED CELL DISTRIBUTION WIDTH 16.5 % (9.0-15.0); WHITE BLOOD COUNT (AUTO) 11.6 K/uL (4.8-10.8)
[2018-05-20 06:39] LABS: CALCIUM 8.4 mg/dL (8.4-11.0); CREATININE 0.73 mg/dL (0.55-1.30); POTASSIUM 3.7 mmol/L (3.5-5.1)
--- NOTE | 2018-05-20 07:04 | NUR ---
CONSULTATION PAGED/CALLED Reason for Consultation: [] METHADONE AND DILAUDID DEPENDENT Person Who was Notified: [] CHINO Consulting Physician: [] DR Osmar PARRA Pelletising Extruder Operator Specialty: [] PAIN MGMT Ordering Physician: [] SR Evelin CAMACHO
--- NOTE | 2018-05-20 07:20 | NUR ---
Closing Note Pt is awake and resting comfortably in bed. No c/o pain or discomfort at this time. All pt's needs were attended to. No fall or injury noted this shift. IVF is infusing well in LAC without any signs of infiltration. Bedside report given to day shift nurse.
--- NOTE | 2018-05-20 07:50 | NUR ---
Nutrition Update Sal Scale 17 noted. Pt admitted for ALOC Diet: NPO BMI: 22.3 kg/m2 RD to follow per nutrition care standards.
--- NOTE | 2018-05-20 08:00 | NUR ---
Patient is the A/Ox4, SR ON MONITOR. NPO AT THIS TIME. IV ON THE LEFT AC, #22, RUNNING D5NS AT 80ML/HR. CALL LIGHT IN PLACE, BED LOCKED AT THE LOWEST POSITION, WILL CONTINUE TO MONITOR.
--- NOTE | 2018-05-20 08:50 | NUR ---
PATIENT'S CONDITION IS RELAYED TO FAMILY MEMBER AT BEDSIDE. THEY VERBALIZED UNDERSTANDING.
[2018-05-20] MEDS: HEPARIN SODIUM,PORCINE 5000 UNITS/ML VIAL SUBCUT SCH ×2 (10:32→21:43)
--- NOTE | 2018-05-20 11:15 | NUR ---
WOUND EVALUATION: Wound Consult received from Dr. Crow. Thank you, Dr. Crow, for the consult. Patient received in a Rony Bed with an Atmos-Air 9000 mattress, awake, alert, and oriented. Patient is unable to turn independently. Sal Score is a 17. Past Medical History: Chronic pain syndrome, opiate dependence, right knee arthroplasty approximately 3 weeks ago, muscle spasms, bilateral hip and knee DJD, Crohn's disease, pancreatitis. Recent Labs: WBC 11.6, RBC 3.52, hemoglobin 11.5, hematocrit 33.7, glucose 111, alkaline phosphatase 119, PT 9.2, PTT 24.6. Intrinsic factors that delay wound healing: Mild anemia. Extrinsic factors that delay wound healing: Decreased mobility. No microbiology reports. Patient was found on floor at home by her son who was visiting, with possible loss of consciousness. According to orthopedic physician consult, there is a possible right knee posterior lateral subluxation of the right knee in a mild valgus position. Wound Assessment: 1. Right knee: Recent total knee arthroplasty site, small open area, present on admission. Bed has 100% yellow tissue. No odor, scant sero-purulent drainage. Knee has 3+ edema locally, mild erythema locally, and calor. Wound measures 0.5 cm x 0.5 cm. Recommend: Cleanse wound with normal saline. Place SurePrep onto kalyn-wound. Apply Hydrogel onto wound bed. Cover with foam dressing. Perform wound care daily, and as needed for dressing soiling or dislodgement. 2. Left knee: Chronic wound, present on admission. Wound bed has 90% dark red eschar, 10% black eschar. I, stable. No odor, no drainage. Kalyn-wound intact. Measures . Recommend: No dressing needed. And she needed to monitor site every shift. Also recommend: Encourage and assist patient as needed with repositioning side to side with pillow wedge pelvic tilt every 2 hours, and off-load pressure areas with pillows for pressure re-distribution. Offload, elevate and float bilateral heels with pillows. Perform skin care and monitor skin integrity Q shift. Use moisture barrier cream on buttocks and other moisture susceptible areas QID and as needed for soiling.
--- NOTE | 2018-05-20 12:00 | NUR ---
PATIENT TO SURGERY. CONSENT FORMS SIGNED.
[2018-05-20] MEDS ORDERED: LR 1,000 ML IV SCH ×2 (12:02)
[2018-05-20] MEDS ORDERED: HYDROmorphone 1 MG INJ. 1 MG/ML AMPUL IVP PRN (12:15)
[2018-05-20] MEDS ORDERED: MEPERIDINE HCL/PF 25 MG/ML DISP.SYRIN IVP PRN ×2 (12:15)
[2018-05-20] MEDS ORDERED: HYDROmorphone 2 MG/ML VIAL IVP PRN ×2 (12:15)
[2018-05-20 12:39] VITALS: BP_SYST 146
--- NOTE | 2018-05-20 13:40 | NUR ---
DC planning: S/W Dr. Whiting re: need for transfer to [facility] for higher level of care-he attempted closed reduction of right knee but unsuccessful-Dr. Whiting said he called Dr. Nix and Dr. Nix returned call while Dr. Whiting was in surgery, so he was unable to speak with him. I called [facility] transfer center at [phone]-s/w Toy regarding need for transfer -Toy said they need to hear from Dr. Nix first but requested me to fax face sheet, orders, MD progress notes to fax#[phone]-I faxed info including operative report. Per Dr. Lorena Crow, pt may go to med/surg bed. I also called Dr. Nix's office#[phone] and [address] Nix's bilingual medical assistant re: need for transfer to [facility] for higher level of care. Pt's Fernie also notified of pending transfer at ph#[phone]. Nurse Vines aware of pending transfer. Xray cd made and will place transfer packet at nursing station. ARASELI RN
[2018-05-20] MEDS ORDERED: HYDROmorphone 2 MG/ML VIAL ONE (13:49)
[2018-05-20 14:20] VITALS: BP_SYST 143
--- NOTE | 2018-05-20 14:22 | NUR ---
PATIENT RETURNED FROM SURGERY. A/OX4. SR ON MONITOR. CAST PLACED ON RIGHT LEG. ABLE TO MOVE HER TOES, DORSALIS PEDIS PALPABLE.
[2018-05-20] MEDS: HYDROcodone/ACETAMIN 5-325 MG TAB (NORCO/ VICODIN) PO PRN (15:03)
--- NOTE | 2018-05-20 16:09 | NUR ---
Case mgt: I called [facility] again at [phone] s/w Toy-he hasn't heard from Dr. Nix yet. I called Dr. Nix's office at [phone]--s/w his claims assistant Dorothy, who said she is trying to reach Dr. Nix and that he has been in surgery all day. She will let him know [facility] awaits his call as well as Dr. Whiting. I explained this pt's closed reduction of rt knee was unsuccessful today by Dr. Whiting. ARASELI RN
[2018-05-20 16:45] VITALS: BP_SYST 141
[2018-05-20 17:43] VITALS: BP_SYST 143
--- NOTE | 2018-05-20 18:20 | NUR ---
PATIENT'S DAUGHTER AT BEDSIDE. INFORMED HER THE CURRENT POC OF TREATMENT.
[2018-05-20 20:00] VITALS: BP_SYST 141
--- NOTE | 2018-05-20 20:00 | NUR ---
Initial PM Note Pt was received lying in bed fully awake, alert and oriented x4. Speech is clear and pt is able to make her needs known. Pt's is visiting at the bedside. No c/o pain or discomfort at this time. Right knee marii wrap dressing over long leg fiberglass splint noted. The dressing and splint are dry and intact. Pt is able to wiggle her toes freely and all toes have good capillary refills. IV site in LAC is leaking and attempt is being made to restart another IV line. Fall and safety precautions are in place. Call light is with pt and bed alarm is on. Pt was instructed to call for assistance as needed and pt verbalized understanding.
--- NOTE | 2018-05-20 21:15 | NUR ---
IV Restart New IV line was restarted in RFA with Angiocath 24G by charge nurse Jyoti. IVF of D5NS was resumed at 80ml/hr. IV line in LAC was removed with the Angiocath intact. Pt appears very anxious and is requesting IV Ativan. Will medicate pt per her request.
[2018-05-20] MEDS: LORazepam 2 MG/ML VIAL IVP PRN (21:20)
--- NOTE | 2018-05-20 21:20 | NUR ---
Anxiety Ativan 2mg was given IV per pt's request for c/o severe anxiety with relief. IV site in RFA is without any signs of infiltration. IVF is infusing well at 80ml/hr. Call light is with pt and bed alarm is on. Pt's room is across from Nurses' Station. Rt leg marii wrap dressing and splint are dry and intact. Will continue to monitor pt.
[2018-05-20] MEDS: ZOLPIDEM TARTRATE 5 MG TABLET PO PRN (23:12)
--- NOTE | 2018-05-20 23:14 | NUR ---
Insomnia Ambien 5mg was given po per pt's request for c/o insomnia. Call light is with pt and bed alarm is on. IVF is infusing well in RFA. Rt leg marii wrap dressing and splint are dry and intact. Will continue to monitor pt.
[2018-05-21] MEDS: HYDROcodone/ACETAMIN 5-325 MG TAB (NORCO/ VICODIN) PO PRN (00:54)
--- NOTE | 2018-05-21 00:54 | NUR ---
Pain Medication [place] 5/325mg 1 tablet was given po per pt's request for c/o 6/10 right knee pain. Call light is with pt and bed alarm is on.
[2018-05-21] MEDS: D5NS 1,000 ML IV SCH ×2 (01:00→14:11)
[2018-05-21 01:01] VITALS: BP_SYST 131
--- NOTE | 2018-05-21 02:20 | NUR ---
Marie [place] Maryam from [facility] Transfer Department called to inform RN they do not have a bed for pt yet. She stated there may be a bed later during the day.
[2018-05-21] MEDS: LORazepam 2 MG/ML VIAL IVP PRN ×2 (02:36→07:59)
--- NOTE | 2018-05-21 02:36 | NUR ---
Anxiety Ativan 2mg was given IV per pt's request for c/o severe anxiety with relief. IVF is infusing well at 80ml/hr. Call light is with pt and bed alarm is on. Pt's room is across from Nurses' Station. Rt leg marii wrap dressing and splint are dry and intact. Will continue to monitor pt.
--- NOTE | 2018-05-21 04:30 | NUR ---
Rounds Pt is sleeping without any resp distress noted. Call light is with pt and bed alarm is on. IVF is infusing well in RFA.
[2018-05-21 06:19] LABS: BASOPHILS % (AUTO) 0.4 % (0.0-2.0); EOSINOPHILS % (AUTO) 0.1 % (0.0-4.0); HEMATOCRIT 33.9 % (36-48); HEMOGLOBIN 11.2 g/dL (12.0-16.0); LYMPHOCYTES # (AUTO) 2.9 K/uL (1.0-5.5); LYMPHOCYTES % (AUTO) 26.4 % (20.5-51.5); MEAN CORPUSCULAR HEMOGLOBIN 32 pg (27-31); MEAN CORPUSCULAR HGB CONC 33 % (32-36); MEAN CORPUSCULAR VOLUME 96 fL (79.0-98.0); MONOCYTES % (AUTO) 8.7 % (1.7-9.3); NEUTROPHILS % (AUTO) 64.4 % (40.0-70.0); PLATELET COUNT (AUTO) 376 K/uL (130-430); RED BLOOD CELL COUNT(AUTO) 3.54 MIL/uL (4.2-6.2); RED CELL DISTRIBUTION WIDTH 16.5 % (9.0-15.0); WHITE BLOOD COUNT (AUTO) 10.9 K/uL (4.8-10.8)
--- NOTE | 2018-05-21 06:30 | NUR ---
Closing Note Pt is awake and resting comfortably in bed. No c/o pain or discomfort at this time. Right leg marii wrap dressing and splint are dry and intact. All pt's needs were attended to. No fall or injury noted this shift. IVF is infusing well in RFA without any signs of infiltration. Will endorse to day shift nurse.
[2018-05-21 06:54] LABS: CALCIUM 8.1 mg/dL (8.4-11.0); CREATININE 0.96 mg/dL (0.55-1.30); POTASSIUM 3.5 mmol/L (3.5-5.1)
[2018-05-21 08:00] VITALS: BP_SYST 130
--- NOTE | 2018-05-21 08:00 | NUR ---
Opening Note/PRN Ativan received report from night order selector RN, pt A&Ox4, respirations even and unlabored, IV site clean, dry, intact and infusing freely, long leg fiber glass cast with DARIUS bandage in place, bilateral lower extremity pulses present and equal, pt able to wiggle toes, pain controlled at this time, pt complaint of anxiety, pt educated on use of breathing exercises, pt educated on use of PRN ativan, pt verbalized understanding, tolerated medication administration well, pt educated on use of incentive spirometer, educated on use of call light and asked to call for assistance, pt verbalized understanding, call light in reach, bed in low position, bed alarm on, room close to nurses station, fall and aspiration precautions in place.
--- NOTE | 2018-05-21 08:37 | NUR ---
DC PLANNING Called & spoke dilcia Mcgarry @ [facility], ph [phone], 's spoke pt has been accepted but no beds avail @ this time. Waiting for bed availability, has CM direct # & nsg station direct#. Called & updated pt's nurseBinu. Addendum: 05/21/18 at 1514 by Xuan Carroll RN Spoke w pt @ bedside, already aware that has been accepted & waiting for bed. Addendum: 05/21/18 at 1526 by Xuan Carroll RN Called & spoke dilcia Perrin @ [facility], pt has been accepted & financially cleared waiting for bed availability. Aware CM leaving for the day will call nsg station if bed becomes available.
[2018-05-21] MEDS: HEPARIN SODIUM,PORCINE 5000 UNITS/ML VIAL SUBCUT SCH ×2 (08:53→20:17)
--- NOTE | 2018-05-21 08:55 | NUR ---
Medication pt educated on medication use and side effects, pt verbalized understanding, tolerated medication administration well, no complaints of pain at this time, fall and aspiration precautions in place.
[2018-05-21] MEDS ORDERED: HYDROcodone/ACETAMIN 10-325 MG TAB PO PRN (09:30)
--- NOTE | 2018-05-21 09:40 | NUR ---
Dr. Crow rounds assessed patient at bedside, patient requesting her home medication of Xanax PO instead of IV Ativan and patient stated that the pain medication is not working, orders received to stop IV Ativan and resume patient home medication of Xanax PO, also increase Orange dose from 5/325 to 10/325mg, and ok to give Xanax one dose now, will follow up.
--- NOTE | 2018-05-21 10:13 | NUR ---
Medication pt complaint of nausea, pt educated on use of PRN zofran, pt verbalized understanding, tolerated medication administration well, pt resting in bed, respirations even and unlabored, no additional needs at this time, fall and aspiration precautions in place.
[2018-05-21] MEDS ORDERED: ALPRAZolam 0.25 MG TABLET PO ONE (10:15)
--- NOTE | 2018-05-21 10:30 | NUR ---
Medication/Notes pt educated on medication use and side effects, pt verbalized understanding, tolerated medication administration well, pt requesting to use bedpan, assisted to use bedpan, voided x1, clear, yellow, clean gown provided, fall and aspiration precautions in place.
--- NOTE | 2018-05-21 12:20 | NUR ---
RN Rounds pt sleeping in bed, respirations even and unlabored, no acute distress noted, fall and aspiration precautions in place.
[2018-05-21 12:32] VITALS: BP_SYST 139
--- NOTE | 2018-05-21 13:50 | NUR ---
Notes pt requesting to use bedpan, pt assisted to use bedpan, voided x1, clear, yellow, no additional needs at this time, fall and aspiration precautions in place.
[2018-05-21] MEDS ORDERED: ALPRAZolam 0.25 MG TABLET PO SCH ×2 (15:00→21:00)
--- NOTE | 2018-05-21 15:27 | NUR ---
Medication/Pain Management pt complaint of pain 6/10 to right leg and back, pt educated on PRN medication use and side effects, pt verbalized understanding, tolerated medication administration well, no additional needs at this time, fall and aspiration precautions in place.
[2018-05-21 16:00] VITALS: BP_SYST 141
--- NOTE | 2018-05-21 16:30 | NUR ---
Notes pt requesting to use bed watkins, pt assisted to use bed watkins, voided x1, yellow, clear, no additional needs, fall and aspiration precautions in place.
--- NOTE | 2018-05-21 16:40 | NUR ---
Notes pt requesting bedpan, pt assisted to use bedpan, voided x1, clear, yellow, no additional needs at this time, fall and aspiration precautions in place.
--- NOTE | 2018-05-21 17:07 | NUR ---
Notes pt requesting to go outside to smoke, informed pt that for their safety going outside is not advisable, offered to call MD for nicotine patch, pt refused, asked charge nurse to speak with patient.
--- NOTE | 2018-05-21 17:14 | NUR ---
Spoke with MD spoke with Dr. Crow regarding patients home medication of soma, new orders received, made MD aware that we are waiting for a bed at [facility] at this time. Addendum: 05/21/18 at 1731 by Binu Lott RN Charge nurse spoke with patient and explained risk of getting the patient out of bed without PT eval and due to patient condition, patient asked Charge nurse if her can take her outside to smoke, again Charge Nurse explained risks to the patient due to condition and patient's history.
[2018-05-21] MEDS ORDERED: CARISOPRODOL 350 MG TABLET PO ONE (17:30)
--- NOTE | 2018-05-21 17:49 | NUR ---
Medication/Notes pt educated on medication use and side effects, pt verbalized understanding, tolerated medication administration well, pt states that pharmacy has her home medications with them and would like to have her pick them up before they close, called pharmacy, will picking machine operator helper home medications.
--- NOTE | 2018-05-21 18:30 | NUR ---
Home Meds given to son pts home medications from pharmacy given to pt son in sealed bag, will take home.
--- NOTE | 2018-05-21 18:30 | NUR ---
Called [facility] transfer center spoke with Nancie regarding bed placement, Nancie stated that they are trying to get a hold of Dr. Nix so that he can call Dr. Whiting and to to report, Nancie is continuing to follow up, bed is available for transfer tonight, pending to report. Addendum: 05/21/18 at 1830 by Binu Lott RN [facility] #[phone] Addendum: 05/21/18 at 1832 by Binu Lott RN Dr. Nix's office (ortho surgeon at [facility]) #[phone] Addendum: 05/21/18 at 2014 by Binu Lott RN Spoke with Dr. Whiting @ 184 regarding to report for [facility] transfer, Dr. Whiting informed me that the office of Dr. Nix called him to tell him that Dr. Nix is going out of town and that the [facility] ortho surgeon will call Dr. Whiting for report, Dr. Whiting informed the office that he is going into surgery starting now and until [address] Whiting gave Dr. Nix's office Dr. Crow's phone number for report, I informed Dr. Crow of this.
--- NOTE | 2018-05-21 19:10 | NUR ---
Closing Note pt resting in bed, A&Ox4, respiration even and unlabored, IV site clean, dry, intact, and infusing freely, long leg fiberglass cast in place, clean, dry, and intact, wound care per Codie orders not able to be completed today because of long leg cast, pain controlled at this time, call light in reach, bed in low position, bed alarm on, room close to nurses station, fall and aspiration precautions in place, care endorsed to third shift lieutenant RN.
[2018-05-21 20:00] VITALS: BP_SYST 129
--- NOTE | 2018-05-21 20:00 | NUR ---
Initial Notes Received patient resting in bed, awake, alert, oriented. Patient denies any acute distress at this time. Breathing is even and unlabored. Vital signs stable. IV site patent/clean/dry. Cast and bandage wrap noted to patient right knee. Patient noted she is aware there is orders to be transferred to [facility] once bed becomes available, and is in agreement. Educated patient regarding use of call light for assistance and fall precautions, patient verbalized understanding. Call light in hand, fall precautions in place.
--- NOTE | 2018-05-21 21:00 | NUR ---
Nursing Notes Family at bedside, requesting to take patient outside via wheelchair. Educated family and patient that patient is receiving medication at this time that will increase her chances of falling/injuring self, family and patient verbalized understanding, stating she will not go outside tonight.
[2018-05-21] MEDS: ZOLPIDEM TARTRATE 5 MG TABLET PO PRN (21:12)
--- NOTE | 2018-05-21 22:29 | NUR ---
TRANSPORT CALLED [facility] FOR TRANSPORT FROM [facility] CALLED AND GAVE ROOM NUMBER FOR PT. GOING TO [address] [facility]. REPORT [phone] DOCTOR CONNELLY IS ACCEPTING DOCTOR.
[2018-05-21 22:58] VITALS: BP_SYST 137
--- NOTE | 2018-05-21 22:58 | NUR ---
MEDIC 1 ASSOCIATE PROFESSOR OF PSYCHOLOGY WILL BE AT 0000 SPOKE WITH YOANA
--- NOTE | 2018-05-21 23:23 | NUR ---
Report Called to [facility] Report called to . Report given to Alan MATUTE.
--- NOTE | 2018-05-22 00:13 | NUR ---
Patient transfered to [facility] personnel on unit to transport patient to [facility]. Discharge paperwork and all personal belongings with patient. Vital signs stable and patient denies any acute distress or pain at time of discharge.
[2018-05-22] MEDS ORDERED: CARISOPRODOL 350 MG TABLET PO SCH (09:00)
== END 2018-05-22 00:13 | disposition short-term general hospital (02) | DRG 559 ==
LOC: SED 21:01 → STU 23:52
PROVIDERS: ADMIT General Practice; ATTEND General Practice
PROC: 2W3LX1Z Immobilization of Right Lower Extremity using Splint (ICD-10-PCS; principal; 2018-05-20 13:00)
DX: T84.022A Instability of internal right knee prosthesis, initial encounter (principal); G92 Toxic encephalopathy; F11.20 Opioid dependence, uncomplicated; K50.90 Crohn's disease, unspecified, without complications; G89.4 Chronic pain syndrome; Z96.651 Presence of right artificial knee joint; F17.210 Nicotine dependence, cigarettes, uncomplicated; F19.129 Other psychoactive substance abuse with intoxication, unspecified; F32.9 Major depressive disorder, single episode, unspecified; M17.0 Bilateral primary osteoarthritis of knee; W18.39XA Other fall on same level, initial encounter; M16.0 Bilateral primary osteoarthritis of hip; Y83.1 Surgical operation with implant of artificial internal device as the cause of abnormal reaction of the patient, or of later complication, without mention of misadventure at the time of the procedure; Y93.89 Activity, other specified; Y92.89 Other specified places as the place of occurrence of the external cause; Y99.8 Other external cause status; Z88.1 Allergy status to other antibiotic agents; Z88.5 Allergy status to narcotic agent; Z88.8 Allergy status to other drugs, medicaments and biological substances
CPT/HCPCS: 36415; 70450-TC; 71045; 76000; 80048; 80053; 80307; 81003; 83036; 83735-TC; 84484; 84702-TC; 85025; 85610-TC; 85730-TC; 86886; 86900; 86901; 93005; 94010; 94760; 96361; 96374; 99285; G0480; G0481; G0482; J0330; J1100; J1170; J1644; J2001; J2060; J2250; J2310; J2405; J3010; J3490; J7030; J7042; J7120